=== PATIENT | female | born 1955 | race Two or more races ===

== ENCOUNTER 2019-10-05 08:36 | Emergency (ER) | payer OTHER ==
[~2019-10-05] VITALS: Ht 167.6 cm; Wt 72.6 kg
[~2019-10-05 08:36] MED LIST: GABAPENTIN400 MG PO; IBUPROFEN200 MG PO; RISPERIDONE0.5 MG PO; VENLAFAXINE HC225 MG PO
[2019-10-05] MEDS ORDERED: DONEPEZIL HCL10 MG PO (08:46)
[2019-10-05] MEDS ORDERED: ATORVASTATIN CA20 MG PO (08:46)
[2019-10-05] MEDS ORDERED: NAPROXEN500 MG PO (08:47)
[2019-10-05] MEDS ORDERED: MEMANTINE HCL5 MG PO (08:47)
[2019-10-05] MEDS ORDERED: METOPROLOL SUCC25 MG PO (08:47)
[2019-10-05] MEDS ORDERED: NYAMYC15 GM TOP (08:48)
[2019-10-05] MEDS ORDERED: FAMCICLOVIR500 MG PO (08:59)
[2019-10-05] MEDS ORDERED: PRED MILD5 ML OPTH (09:06)
== END 2019-10-05 09:30 | disposition home or self-care (01) ==
LOC: ED 08:36
DX: B02.9 Zoster without complications (principal); F41.9 Anxiety disorder, unspecified; F32.9 Major depressive disorder, single episode, unspecified; F03.90 Unspecified dementia, unspecified severity, without behavioral disturbance, psychotic disturbance, mood disturbance, and anxiety; Z88.1 Allergy status to other antibiotic agents; Z79.899 Other long term (current) drug therapy
CPT/HCPCS: 99283